=== PATIENT | female | born 1990 | race Two or more races ===

== ENCOUNTER 2018-11-06 21:28 | Emergency (ER) | payer BC ==
[~2018-11-06] VITALS: Ht 162.6 cm; Wt 65.8 kg
[2018-11-06] MEDS ORDERED: IBUPROFEN600 MG ORAL (22:44)
[2018-11-06 22:45] VITALS: BP 103/68
--- NOTE | 2018-11-07 04:47 | Emergency Room Report ---
History of Present Illness General Chief Complaint: Lower Extremity Injury Source: Patient Present Illness HPI 28-year-old female presents ED for evaluation. Calf pain and swelling. States 2 days ago she tripped and fell landing on her left leg. States there is bruising to the leg with some swelling. Pain is throbbing, 7 out of 10, nonradiating. States she is able to bear weight but with difficulty. Denies any other injuries. No other aggravating relieving factors. Denies any other associated symptoms Allergies: Coded Allergies: No Known Allergies (Unverified , 11/06/18) Patient History Past Medical History: none Past Surgical History: none Pertinent Family History: none Social History: Denies: smoking, alcohol use, drug use Last Menstrual Period: Nov 01 2018 Now: No Immunizations: UTD Reviewed Nursing Documentation: PMH: Agreed; PSxH: Agreed Nursing Documentation-PMH Past Medical History: No Stated History Review of Systems All Other Systems: negative except mentioned in HPI Physical Exam Vital Signs Date Time Temp Pulse Resp B/P (MAP) Pulse Ox O2 Delivery O2 Flow Rate FiO2 11/06/18 21:38 98.2 79 18 103/68 (80) 99 Room Air Sp02 EP Interpretation: reviewed, normal General Appearance: no apparent distress, alert, GCS 15, non-toxic Head: normocephalic Eyes: bilateral eye normal inspection, bilateral eye PERRL ENT: normal ENT inspection Neck: normal inspection Respiratory: normal inspection Cardiovascular #1: normal inspection Gastrointestinal: normal inspection Rectal: deferred Genitourinary: no CVA tenderness Musculoskeletal: normal inspection, calf tenderness - bruising. negative thomsons test Neurologic: alert, oriented x3, responsive, motor strength/tone normal, sensory intact, speech normal Psychiatric: normal inspection Skin: normal inspection Lymphatic: normal inspection Medical Decision Making Diagnostic Impression: Primary Impression: Contusion of calf Qualified Codes: S80.12XA - Contusion of left lower leg, initial encounter ER Course Hospital Course 28-year-old F presents to ED complaining of L calf pain s/p trip and fall Differential diagnoses include: Fracture, dislocation, sprain, contusion Clinical course Patient placed on stretcher. After initial history and physical, I ordered pain medications and Xrays of L t ibfib Xrays prelim read shows no acute fracture/dislocation. [place] findings with patient. Negative Suresh test. Likely contusion versus muscle strain. recommend conservative therapy of ice, NSAIDs, nonweightbearing. Close follow- up with orthopedics. I will provide referrals Diagnosis - contusion of calf Stable and discharged to home with prescription for Motrin. apply ice, keep elevated. weight bear as tolerated. Followup with PMD/ortho. Return to ED if symptoms recur or worsen Other X-Ray Diagnostic Results Other X-Ray Diagnostic Results : X-Ray ordered: L tibfib # of Views/Limited Vs Complete: 3 View Indication: Pain EP Interpretation: Yes Interpretation: no dislocation, no soft tissue swelling, no fractures Impression: No acute disease Electronically Signed by: Electronically signed by Milo Lopez MD Last Vital Signs Date Time Temp Pulse Resp B/P (MAP) Pulse Ox O2 Delivery O2 Flow Rate FiO2 11/06/18 22:45 98.2 18 103/68 99 Room Air 11/06/18 21:38 79 Status: improved Disposition: HOME, SELF-CARE Condition: Stable Scripts Ibuprofen* (MOTRIN*) 600 Mg Tablet 600 MG ORAL Q8H PRN for For Pain, #30 TAB 0 Refills Prov: Milo Lopez MD 11/06/18 Referrals: David Pastor MD NON PHYSICIAN (PCP) Patient Instructions: Contusion, [id number] Milo Lopez MD Nov 07, 2018 04:47
--- NOTE | 2018-11-07 17:47 | Diagnostic Imaging Report ---
Indication: Reason For Exam: PAIN Technique: 2 views of the left tibia and fibula Comparison: none Findings: No acute fractures. No dislocations. The joint spaces are preserved. No radiopaque foreign body demonstrated Impression: Negative This agrees with the preliminary interpretation provided by the emergency room physician
== END 2018-11-06 22:45 | disposition home or self-care (01) ==
LOC: EMR 21:55
DX: S80.12XA Contusion of left lower leg, initial encounter (principal); W01.0XXA Fall on same level from slipping, tripping and stumbling without subsequent striking against object, initial encounter; Y92.9 Unspecified place or not applicable
CPT/HCPCS: 99283